=== PATIENT | female | born 1990 | race Hispanic/Latino ===

== ENCOUNTER 2016-12-03 18:51 | Inpatient (IN) | payer BC, OTHER ==
[2016-12-03 19:49] VITALS: BMI 25.2
[2016-12-03] MEDS ORDERED: Lactated Ringer's 1,000 ML IV SCH (20:00)
[2016-12-03 20:56] LABS: BASO % 0.3 % (0.0-2.0); EOS # 0.1 K/uL (0.0-0.7); EOS % 0.5 % (0.0-4.0); HEMATOCRIT 34.3 % (34.0-47.0); LYMPH # 1.5 K/uL (1.0-4.3); MEAN CELL VOLUME 90.8 fl (81.0-99.0); MEAN CORPUSCULAR HGB CONC 34.2 g/dL (33.0-37.0); MEAN PLATELET VOLUME 10.5 fl (7.2-11.7); MONO # 0.8 K/uL (0.0-0.8); MONO % 7.3 % (0.0-10.0); NEUT # 8.5 K/uL (1.8-7.0); NEUT % 77.9 % (50.0-75.0); NRBC % 0.1 % (0.0-0.0); RED CELL DISTRIBUTION WIDTH 13.7 % (11.5-14.5); WHITE BLOOD COUNT 10.9 K/uL (4.8-10.8)
[2016-12-03 22:44] VITALS: BP 123/81; PULSE 78; RESP 18; TEMP 97.5; O2SAT 100
--- NOTE | 2016-12-04 06:32 | OBHP ---
Datetime: 12/03/2016 19:20 IP Adm Impression: Postterm, intrauterine ; No Active Labor; Intact Membranes IP Admit Plan: Admit to unit; Initiate labor induction protocol Admit Comment, IP Provider: 26 yr at 41.6wks GA by LMP presents to [facility] for IOL for postdates a nd oligohydramnios on wellbeing US done today. Denies vaginal bleeding, LOF, ctx's. + mov ement. Routine care with Dr. Alonso. Patient has no concerns or complaints at this time. care/course: Rh neg s/p Rhogam, Rubella Non-Immune, GBS neg, RPR neg, HIV neg, Tdap given , Influenza given, Wellbeing US 12/03/16: cephalic, oligohydramnios with SAV 2, BPP 6/8, placent a posterior grade 3 OBHx: none PMHx: none SurHx: none SocHx: denies Etoh/smoking/drugs Meds: PNV Allergies: NKDA PE: VSS, patient in no acute distress Cardiac: S1 S2 normal, no murmurs/rubs/gallops Lungs: CTABL Abd: gravid, nontender Ext: no edema, pulses 2+ throughout Monitoring: FHR 135 bpm, moderate variability 6-25 bpm, accelerations 15x15, no decels, Korin gory I A: IUP at 41.6 wks GA P: -Admit to labor and delivery -IV insertion, CBC, Type and Screen -Continuous monitoring -Monitor labor progress -Cytotec 50 mcg PO Q4 -Anesthesia consult Yessica Hill M.D. PGY1 OB Hospitalist note: This pt was seen and examined by me. Agree with above note. MAHNDOAfter disc ussion she wanted Cervidil intravagially Extremities - PN: Normal Abdomen - PN: Normal Back - PN: Normal Lungs - PN: Normal Heart - PN: Normal Thyroid - PN: Normal Neurologic - PN: Normal HEENT - PN: Normal General - PN: Normal FHR - Baseline A Provider: 135 Membranes, Provider: Intact Contraction Comments Provider: occ Comments, ACOG Physical Exam: ROS: General: no weakness; no fatigue HEENT: no LYLE; no visual dist CV: no palpitations; no no CP GI: noN/V no diarhea No epigastric pain; non radiating : no F/U/D MS: No joint pain Gestation - Est Wks by US: 41.6 Pool Provider: Negative IP Hx Assessment: The History has been Reviewed and is Current Vital Signs Provider: Reviewed; Within Normal Limits IP Chief Complaint: Scheduled induction of labor NICHD Variability Prov Fetus A: Moderate 6-25bpm NICHD Accel Fetus A IP Provider: 15X15 FHR Category Provider Fetus A: Category I NICHD Decel Fetus A IP Provider: None Dilatation, Provider: ft Effacement, Provider: Long Station, Provider: high DTRs - PN: Normal
[2016-12-04] MEDS ORDERED: Oxytocin 30 units/LR 500ML 30 U/500 ML BAG IV ONE (11:21)
[2016-12-04] MEDS ORDERED: Nalbuphine 20 mg/ml Inj (1 ml) IVP PRN (22:44)
[2016-12-05] MEDS: Lactated Ringer's 1,000 ML IV SCH ×2 (00:30→10:31)
--- NOTE | 2016-12-05 07:28 | OBPN ---
Datetime: 12/04/2016 07:25 IP Progress Impression: Reactive non-stress test IP Informed Consent Obtain: Induction of Labor IP Procedures: Sterile Speculum Exam FHR - Baseline A Provider: 145 IP Progress Note Comment: The patient was admitted for induction of labor secondary to postdates pt recieved misoprostol through out the day aand started on cervadil around 10 pm. Pt has adequate pelvis, vertex presentation,EFW 8-81/2 lbs anticipate NICHD Accel Fetus A IP Provider: 15X15 FHR Category Provider Fetus A: Category I NICHD Variability Prov Fetus A: Moderate 6-25bpm Dilatation, Provider: 1 Effacement, Provider: 50 Station, Provider: -2 NICHD Decel Fetus A IP Provider: None Datetime: 12/03/2016 19:20 Pool Provider: Negative Membranes, Provider: Intact Contraction Comments Provider: occ Gestation - Est Wks by US: 41.6 Vital Signs Provider: Reviewed; Within Normal Limits
--- NOTE | 2016-12-05 07:36 | OBPN ---
Datetime: 12/05/2016 07:28 IP Progress Impression: Normal progression of labor; Reactive non-stress test IP Procedures: Artificial ROM IP Progress Plan: Continue present management; Augmentation FHR - Baseline A Provider: 145 Gestation - Est Wks by US: 42.0 Weight - Estimated: 81/2 Presentation-Admit: Vertex IP Progress Note Comment: Patient doing well reports teo contractions over night sve 3-4 90 -2 AROM clear Consider augmentation anticipate NICHD Accel Fetus A IP Provider: 15X15 FHR Category Provider Fetus A: Category I NICHD Variability Prov Fetus A: Moderate 6-25bpm Dilatation, Provider: 3 Effacement, Provider: 90 Station, Provider: -2 NICHD Decel Fetus A IP Provider: None
[2016-12-05] MEDS ORDERED: Oxytocin 30 units/LR 500ML 30 U/500 ML BAG IV ONE (07:40)
[2016-12-05] MEDS ORDERED: Fentanyl/Bupivacaine HCl 250 ML EPI ONE (10:50)
[2016-12-05] MEDS ORDERED: Lidocaine 2% Inj (20ml) ONE (10:57)
[2016-12-05] MEDS ORDERED: Lidocaine 1% Inj (20ml) ONE (10:57)
--- NOTE | 2016-12-05 11:31 | OBPN ---
Datetime: 12/05/2016 11:26 IP Progress Impression: Normal progression of labor IP Procedures: Sterile Vag Exam IP Progress Plan: Augmentation Membranes, Provider: Intact Amniotic Fluid Color, Provider: Clear Contraction Comments Provider: Q2 FHR - Baseline A Provider: 110 IP Progress Note Comment: 26 yo G1 at 42+1 wks for induction, s/p miso, cervidil, now on pitocin Pt comfortable w/ epidural FHT reassuring, GBS negative NICHD Accel Fetus A IP Provider: 15X15 FHR Category Provider Fetus A: Category I NICHD Variability Prov Fetus A: Absent - Undetectable Dilatation, Provider: 4 Effacement, Provider: 85 Station, Provider: -1 NICHD Decel Fetus A IP Provider: None
--- NOTE | 2016-12-05 15:07 | OBPN ---
Datetime: 12/05/2016 15:02 IP Progress Impression: Normal progression of labor IP Procedures: Sterile Vag Exam IP Progress Plan: Augmentation Membranes, Provider: Ruptured Amniotic Fluid Color, Provider: Clear Contraction Comments Provider: Q3 FHR - Baseline A Provider: 110 IP Progress Note Comment: 26 yo G1 at42+1 wks for induction for post-dates, s/p miso, cervidil, true barry FHT reassuring, GBS negative NICHD Variability Prov Fetus A: Moderate 6-25bpm Dilatation, Provider: 6 Effacement, Provider: 100 Station, Provider: -1
--- NOTE | 2016-12-05 21:08 | OBPN ---
Datetime: 12/05/2016 20:49 IP Progress Impression: Arrest of dilatation/descent IP Informed Consent Obtain: Section Delivery; Risks, Benefits and Alternatives Discussed IP Procedures: Sterile Vag Exam IP Progress Plan: Deliver- Section Membranes, Provider: Ruptured Amniotic Fluid Color, Provider: Clear Contraction Comments Provider: Q2-4 FHR - Baseline A Provider: 130 IP Progress Note Comment: 26 yo G1 at 42+1 wks for induction of labor for oligo, post-dates, s/p cer vidil, miso, cervidil, pitocin Discussed arrest of dilation w/ pt and her . Consents signed. All questions answered. Vital Signs Provider: Reviewed NICHD Accel Fetus A IP Provider: 15X15 FHR Category Provider Fetus A: Category I NICHD Variability Prov Fetus A: Moderate 6-25bpm Dilatation, Provider: 6 Effacement, Provider: 100 Station, Provider: -1 NICHD Decel Fetus A IP Provider: None
[2016-12-05] MEDS ORDERED: Bupivacaine HCl/Epi 0.5% 1:20000 30 ML SOL IJ ONE (21:15)
[2016-12-05] MEDS ORDERED: Lidocaine 2% PF (10 ml) Amp ONE (21:15)
[2016-12-05] MEDS ORDERED: ePHEDrine 50 mg/ml Inj ONE (21:28)
[2016-12-05] MEDS ORDERED: Morphine 1 mg/ml preservative-free Inj(Duramorph) ONE (21:59)
[2016-12-05] MEDS ORDERED: Oxytocin 30 units/LR 500ML 30 U/500 ML BAG IV SCH (22:37)
[2016-12-05] MEDS ORDERED: Acetaminophen-Codeine 300/30 mg Tab PO PRN ×2 (22:39→22:43)
[2016-12-05] MEDS ORDERED: DiphenhydrAMINE 50 mg/ml Inj IVP PRN (23:06)
--- NOTE | 2016-12-05 23:23 | OBDS ---
DELIVERY PERSONNEL Delivery Doctor: Evelyn Ferrell MD Gluing Machine Operator Automatic: Parvin Zimmer RN Anesthesiologist: Judith Brock MD Resident: Dr. Juan Antonio Hill MATERNAL INFORMATION Delivery Anesthesia: Epidural Medications in Delivery: Oxytocin 30 units in 500 mL; Ancef 1 gram Estimated Blood Loss (ml): 800 Placenta Cultured: No Maternal Complications: None Provider Comments: Pre-op dx: 26 yo G1at 42+1 wks w/ arrest of dilation Post-op dx: Same Procedure: Primary low transverse section Surgeon: Mariaelena Board Mixer Tender: Dr. Shannon Anesthesiologist: Dr. Brock Anesthesia: Epidural Findings: Viable male infant delivered through clear fluid in OP position. Apgars 9 and 9. Wt 8# 7. Nl appearing uterus, tubes, and ovaries. EBL: 800mL Complications: None LABOR SUMMARY EDC: 11/20/2016 00:00 No. Babies in Womb: 1 Attempted: No Labor Anesthesia: Epidural LABOR INFORMATION Reason for Induction: Postterm; Oligohydramnios Onset of Labor: 12/05/2016 10:15 Cervical Ripening Agents: Cervidil; Cytotec @ Other Ripening Agents: 50 mcg tab as per md order, Pill # 2. Oxytocin: Induction Group B Beta Strep: Negative Steroids Given: None Reason Steroids Not Administered: Not Applicable MEMBRANES Membranes Rupture Method: Artificial Rupture of Membranes: 12/05/2016 07:10 Length of Rupture (hrs): 14.62 Amniotic Fluid Color: Clear Amniotic Fluid Amount: Scant Amniotic Fluid Odor: Normal STAGES OF LABOR Stage 3 hrs: 0 Stage 3 min: 0 Total Time in Labor hrs: 11 Total Time in Labor min: 32 CSECTION DELIVERY Primary Indication: Arrest of Progress CSection Urgency: Elective CSection Incidence: Primary Labor: Labor Elective: Elective CSection Incision: Lower Uterine Transverse BABY A INFORMATION Infant Delivery Date/Time: 12/05/2016 21:47 Method of Delivery: Born in Route : No : N/A Forceps: N/A Vacuum Extraction: N/A Shoulder Dystocia : No SHOULDER DYSTOCIA BABY A Delivery Date/Time: 12/05/2016 21:47 PRESENTATION/POSITION BABY A Presentation: Cephalic Cephalic Presentation: Vertex PLACENTA INFORMATION BABY A Placenta Delivery Time : 12/05/2016 21:47 Placenta Method of Delivery: Manual Removal Placenta Status: Delivered SCORES BABY A Heart Rate 1 min: >100 bpm Resp Effort 1 min: Good Cry Reflex Irritability 1 min: Cough or Sneeze or Pulls Away Muscle Tone 1 min: Active Motion Color 1 min: Body Friant, Extremities Blue Resuscitation Effort 1 min: Tactile Stimulation SCORE 1 MIN: 9 Heart Rate 5 min: >100 bpm Resp Effort 5 min: Good Cry Reflex Irritability 5 min: Cough or Sneeze or Pulls Away Muscle Tone 5 min: Active Motion Color 5 min: Body Friant, Extremities Blue SCORE 5 MIN: 9 INFANT INFORMATION BABY A Gestational Age at Delivery: 42.0 Gestational Status: Post-term Infant Outcome : Liveborn Condition : Stable Sex: Male IDENTIFICATION/MEDS BABY A ID Band Number: [id number] ID Band Location: Left Leg; Left Arm WEIGHT/LENGTH BABY A Infant Birthweight (gms): 3820 Weight (lb): 8 Infant Weight (oz): 7 Infant Length Inches: 21.00 Infant Length cms: 53.3 CORD INFORMATION BABY A No. Cord Vessels: 3 Nuchal Cord : N/A Cord Blood Taken: Yes Suction: Mouth; Nose
[2016-12-06] MEDS ORDERED: DiphenhydrAMINE 50 mg/ml Inj IVP PRN (00:13)
[2016-12-06] MEDS ORDERED: Acetaminophen-Codeine 300/30 mg Tab PO PRN (00:13)
[2016-12-06] MEDS ORDERED: Lactated Ringer's 1,000 ML IV SCH (00:45)
[2016-12-06] MEDS ORDERED: Simethicone 80 mg Chewtab PO PRN (04:00)
--- NOTE | 2016-12-06 07:33 | OP ---
PROCEDURE DATE: 12/05/2016 PREOPERATIVE DIAGNOSIS: This is a 26-year-old G1 at 42 weeks and 1 day with arrest of dilation. POSTOPERATIVE DIAGNOSIS: This is a 26-year-old G1 at 42 weeks and 1 day with arrest of dilation. PROCEDURE: Primary low transverse section. SURGEON: Samira Ferrell MD GENERAL ASSISTANT: Dr. Shannon, the hospitalist. Dr. Shannon was the surgical aide and participated in the surgery for the entire duration of the case. He helped create exposure. He also helped maintain hemostasis, operated throughout the case on the side of the patient that was across from him and assisted in the delivery of the by applying fundal pressure. This case could not have been completed without his assistance. ANESTHESIOLOGIST: Dr. Brock ANESTHESIA: Epidural. FINDINGS: Viable male infant delivered through clear fluid in OP position at 2147. Apgars were 9 and 9 at 1 and 5 minutes respectively. The weight was 8 pounds 7 ounces. Normal appearing uterus, tubes and ovaries. ESTIMATED BLOOD LOSS: 800 mL. DESCRIPTION OF PROCEDURE: The patient was taken to the operating room where the epidural was bolused. She was prepped and draped in the normal sterile fashion in the dorsal supine position with a leftward tilt. A time-out was done. A Pfannenstiel skin incision was then made with the scalpel and carried through to the underlying layer of fascia with the Bovie. The fascia was incised in the midline. The incision was extended laterally with the Bovie over a Madeleine. The inferior aspect of the fascial incision was then grasped with the Augustin clamps, elevated, and the underlying rectus muscles were dissected off bluntly and with the Bovie. Attention was then turned to the superior aspect of this incision, which in a similar fashion was grasped, tented up with the Augustin clamps, the rectus muscles dissected off bluntly and with the Bovie. The rectus muscles were then in the midline. The peritoneum was identified, tented up and entered sharply with the Metzenbaum scissors. The peritoneal incision was then extended superiorly and inferiorly with good visualization of the bladder. The bladder blade was then inserted and the vesicouterine peritoneum was identified, grasped with the pickups and entered sharply with the Metzenbaum scissors. The incision was then extended laterally and the bladder flap was created digitally. The bladder blade was reinserted and the lower uterine segment was incised in a transverse fashion with the scalpel. The uterine incision was then extended in a cephalocaudad direction digitally. The bladder blade was removed and the 's head delivered atraumatically. The nose and mouth were suctioned with the bulb suction. The cord was clamped and cut. The infant was handed off to the waiting key bed installer. Cord blood was collected. The placenta was then delivered as the uterus was massaged. The uterus was then exteriorized and cleared of all clots and debris with a dry sponge curettage. The uterine incision was repaired with 0 Vicryl in a running locked fashion. A second layer of the same suture was used in an imbricating fashion for hemostasis and to reinforce the incision. The abdomen was then irrigated and the uterus was then returned to the abdomen. The gutters were cleared of all clots. The uterine incision was reexamined and found to be hemostatic. The peritoneum was then closed with 2-0 chromic. The fascia was then reapproximated with 0 Vicryl in a running fashion. Subcutaneous fat was then well irrigated. The skin was then closed with 4-0 Monocryl in a subcuticular fashion. The patient tolerated the procedure well. Sponge, lap, and needle counts were correct. The patient received 1 gram of Ancef prior to the procedure. The patient was taken to the recovery room in stable condition. Rabia Ferrell MD cc: [id number] TT: 12/06/2016 07:33:22 en MTDD
[2016-12-06 08:11] LABS: BASO % 0.2 % (0.0-2.0); EOS % 0.1 % (0.0-4.0); LYMPH # 1.6 K/uL (1.0-4.3); LYMPH % 10.8 % (20.0-40.0); MEAN CELL VOLUME 91.2 fl (81.0-99.0); MEAN CORPUSCULAR HEMOGLOBIN 31.4 pg (27.0-31.0); MEAN CORPUSCULAR HGB CONC 34.5 g/dL (33.0-37.0); MEAN PLATELET VOLUME 10.1 fl (7.2-11.7); MONO # 1.2 K/uL (0.0-0.8); MONO % 8.1 % (0.0-10.0); NEUT # 11.8 K/uL (1.8-7.0); NEUT % 80.8 % (50.0-75.0); NRBC % 0.1 % (0.0-0.0); RED CELL DISTRIBUTION WIDTH 14.4 % (11.5-14.5); WHITE BLOOD COUNT 14.5 K/uL (4.8-10.8)
[2016-12-06] MEDS ORDERED: Rubella Virus Vaccine Inj SC ONE (09:22)
--- NOTE | 2016-12-06 09:22 | OBPPN ---
Datetime: 12/06/2016 09:19 PP Pain Prov: Within normal limits PP Nausea Prov: Denies PP Flatus Prov: No PP BM Prov: Yes PP Breasts Prov: Not Done PP Heart Prov: Normal PP Lungs Prov: Normal PP Abdomen/Uterus Prov: Normal PP Lochia Prov: Normal PP Vulva/Perineum Prov: Normal PP CVA Tenderness Prov: Normal PP Extremities Prov: Normal PP Impression Prov: Normal progression PP Plan Prov: Continue present management PP Progress Note Prov: H/H 06/08 A: S/P C/S day 1 Rh Neg Rubella Non Immune PLAN: cont postop care Vital Signs Provider PP: Reviewed; Within Normal Limits
[2016-12-06] MEDS: Lansinoh for Breast Feeding Mothers TP PRN (22:00)
[2016-12-06] MEDS: Simethicone 80 mg Chewtab PO PRN (22:01)
[2016-12-07] MEDS: Acetaminophen-Codeine 300/30 mg Tab PO PRN ×2 (01:16→21:07)
[2016-12-07] MEDS ORDERED: Rubella Virus Vaccine Inj SC ONE (09:00)
--- NOTE | 2016-12-07 09:20 | OBPPN ---
Datetime: 12/07/2016 09:17 PP Pain Prov: Within normal limits PP Nausea Prov: Denies PP Flatus Prov: Yes PP BM Prov: No PP Breasts Prov: Normal PP Heart Prov: Normal PP Lungs Prov: Normal PP Abdomen/Uterus Prov: Normal PP Lochia Prov: Normal PP Vulva/Perineum Prov: Normal PP CVA Tenderness Prov: Normal PP Extremities Prov: Normal PP C/S Incision Prov: Normal PP Impression Prov: Endometritis PP Plan Prov: Continue present management PP Progress Note Prov: She feels fine. No BM yet. + flatus A: S/P C/S day 2 PLAN: anticipate discharge tmrw Scripts written: Percoset/motrin IP PP Procedures: Rhogam; Rubella IP PP Procedures Comments: If indicated Vital Signs Provider PP: Reviewed; Within Normal Limits
[2016-12-07] MEDS: Lansinoh for Breast Feeding Mothers TP PRN ×2 (11:36→21:10)
[2016-12-08] MEDS: Simethicone 80 mg Chewtab PO PRN (03:33)
[2016-12-08] MEDS ORDERED: Rubella Virus Vaccine Inj SC ONE (09:00)
== END 2016-12-08 13:10 | disposition home or self-care (01) | DRG 765 ==
LOC: H.EROB2 18:51 → H.L&D 19:50 → H.OB/GYN 12-06 01:15
PROVIDERS: ADMIT Obstetrics & Gynecology; ATTEND Obstetrics & Gynecology
PROC: 4A0HXCZ Measurement of Products of Conception, Cardiac Rate, External Approach (ICD-10-PCS; 2016-12-03)
PROC: 10D00Z1 Extraction of Products of Conception, Low, Open Approach (ICD-10-PCS; principal; 2016-12-05)
PROC: 10907ZC Drainage of Amniotic Fluid, Therapeutic from Products of Conception, Via Natural or Artificial Opening (ICD-10-PCS; 2016-12-05)
PROC: 3E0P7GC Introduction of Other Therapeutic Substance into Female Reproductive, Via Natural or Artificial Opening (ICD-10-PCS; 2016-12-05)
PROC: 3E0234Z Introduction of Serum, Toxoid and Vaccine into Muscle, Percutaneous Approach (ICD-10-PCS; 2016-12-08)
DX: O48.0 Post-term pregnancy (principal); O41.03X0 Oligohydramnios, third trimester, not applicable or unspecified; O62.1 Secondary uterine inertia; Z3A.42 42 weeks gestation of pregnancy; Z37.0 Single live birth; Z23 Encounter for immunization

== ENCOUNTER 2016-12-11 20:46 | Emergency (ER) | payer BC ==
[2016-12-11 20:46] VITALS: BMI 25.2
[2016-12-11 20:56] VITALS: BP 108/87; PULSE 62; RESP 16; TEMP 98; O2SAT 100
--- NOTE | 2016-12-11 21:22 | ED PDOC ---
HPI: Headache Time Seen by Provider: 12/11/16 21:03 Chief Complaint (Nursing): Headache Additional History Per: Patient Additional Complaint(s): 26 y/o female presents for eval of headache x 6 days. Patient had epidural for and notes headaches to have started the next day. She states headaches became worse after being discharged Friday. Headaches worsened by sitting and standing, 03/20; states she only gets relief when shes laying down, . Patient seen by her Ob Dr Alonso yesterday, who spoke with an Anesthesiologist on-call here, who recommended Tylenol with caffeine trial. Patient states she has been taking this for 24 hours without improvement of symptoms, so was advised by Ob to come to ED. Denies fever, nausea/vomiting, dizziness, vision changes, extremity numbness/weakness, chest pain, shortness of breath, abdominal pain. Past Medical History Reviewed: Historical Data, Nursing Documentation, Vital Signs Vital Signs: Last Vital Signs Temp 98.0 F 12/11/16 20:52 Pulse 62 12/11/16 20:52 Resp 16 12/11/16 20:52 BP 108/87 12/11/16 20:52 Pulse Ox 100 12/11/16 20:52 - Medical History PMH: No Chronic Diseases - Surgical History Surgical History: - Family History Family History: States: Unknown Family Hx - Home Medications Home Medications: Ambulatory Orders Medication Instructions Recorded Multivit/Folic Acid/I 1 tab PO DAILY 12/04/16 [ Plus] Acetaminophen with Codeine 1 each PO Q4H PRN #30 tablet 12/08/16 [Tylenol with Codeine #3 Tablet] Ibuprofen [Motrin] 600 mg PO Q6H PRN #30 tab 12/08/16 - Allergies Allergies/Adverse Reactions: Allergies Allergy/AdvReac Type Severity Reaction Status Date / Time percocet Allergy Mild VOMITING Uncoded 12/07/16 01:05 Review of Systems ROS Statement: Except As Marked, All Systems Reviewed And Found Negative Neurological: Positive for: Headache Physical Exam - Reviewed Nursing Documentation Reviewed: Yes Vital Signs Reviewed: Yes - Physical Exam Appears: Positive for: Well, Non-toxic, No Acute Distress Head Exam: Positive for: ATRAUMATIC, NORMAL INSPECTION, NORMOCEPHALIC Skin: Positive for: Normal Color Eye Exam: Positive for: Normal appearance, EOMI, PERRL ENT: Positive for: Normal ENT Inspection Cardiovascular/Chest: Positive for: Regular Rate, Rhythm Respiratory: Positive for: Normal Breath Sounds Gastrointestinal/Abdominal: Positive for: Normal Exam Back: Positive for: Normal Inspection Extremity: Positive for: Normal ROM Neurologic/Psych: Positive for: Alert, Oriented - ECG O2 Sat by Pulse Oximetry: 100 - Progress ED Course And Treament: Dr. Sanches, Anesthesia on-call at bedside for blood patch procedure 23:15 Patient sitting up, states headache slightly improved Patient educated on findings, discharged with instructions to follow up [facility] Telephone in 2-3 days. Continue current medication as directed, as needed. Return to ED for worsening/concerning symptoms. Disposition - Clinical Impression Clinical Impression: Headache following intrapartum spinal anesthesia - Patient ED Disposition Is Patient to be Admitted: No Counseled Patient/Family Regarding: Diagnosis, Need For Followup - Disposition Disposition: Routine/Home Disposition Time: 22:56 Condition: IMPROVED Additional Instructions: Follow up with [facility] Tele[facility] as directed. Continue medication as directed, as needed. Return to ED for worsening/concerning symptoms.
--- NOTE | 2016-12-11 22:33 | CP.PCM.CON ---
Past Patient History - Past Social History Smoking Status: Never Smoked Meds Allergies/Adverse Reactions: Allergies Allergy/AdvReac Type Severity Reaction Status Date / Time percocet Allergy Mild VOMITING Uncoded 12/07/16 01:05 Results - Vital Signs Recent Vital Signs: Last Vital Signs Temp 98.0 F 12/11/16 20:52 Pulse 62 12/11/16 20:52 Resp 16 12/11/16 20:52 BP 108/87 12/11/16 20:52 Pulse Ox 100 12/11/16 21:22 Assessment & Plan - Assessment and Plan (Free Text) Plan: Procedure note -- Epidural Blood Patch Pt is post pt, csection with epidural from 6 days ago. Pt states she had headache after discharge but was manageable. Last few days however, headache has been getting progressively worse, exacerbated when sitting up, relieved when lying down. Pt saw her social media job titles doctor who recommended coming into hospital for epidural blood patch. Risks, benefits, alternatives discussed with patient, including chance of second puncture and chance of not working. Patient requests to proceed. Pt positioned sitting, all monitors placed, L4L5 region cleaned and prep'ed and draped. Lidocaine 1% for skin, then Touhy 17 used to access epidural space with AUGUSTINE to air. Space found easily, approx 4cm, no heme, no parasthesia, no CSF. Meanwhile RN certified anesthesiologist assistant cleaned and brenda blood from RAC in sterile draped manner. Handed aliquots of 10ml blood to me. Injected blood through Toughy. At roughly 25ml, pt stated headache was improving. At 30ml, pt stated headache was gone. Touhy removed, bandaged. Pt tolerated procedure. Will be observed for an hour and then may be discharged if feeling better.
== END 2016-12-11 23:16 | disposition home or self-care (01) ==
LOC: H.ER 20:46
DX: G97.1 Other reaction to spinal and lumbar puncture (principal); Y84.4 Aspiration of fluid as the cause of abnormal reaction of the patient, or of later complication, without mention of misadventure at the time of the procedure; Y92.89 Other specified places as the place of occurrence of the external cause